=== PATIENT | male | born 1960 | race Caucasian/White ===

== ENCOUNTER 2018-10-29 09:18 | Emergency (ER) | payer MEDICARE, OTHER ==
[~2018-10-29] VITALS: Ht 170.2 cm; Wt 109.0 kg
[~2018-10-29 09:18] MED LIST: PRED20TA PO
[2018-10-29 09:23] VITALS: BP 126/83; PULSE 66; RESP 20; Ht 170.2 cm; Wt 109.0 kg
--- NOTE | 2018-10-29 09:41 | ERD ---
ER Documentation Chief Complaint Chief Complaint rashes all over the body since saturday HPI 58-year-old nondiabetic male is here complaining of rash to all over his body that he has had since Saturday. He states on Saturday he also had fever but admits he did not take his temperature but stated he had some chills. He is tried taking Benadryl which helped temporarily but the rash never went away. It is itchy. Denies any new foods soaps or irritants that he can think of. No lip or tongue swelling. ROS All systems reviewed and are negative except as per history of present illness. Medications Home Meds Active Scripts Prednisone* (Prednisone*) 20 Mg Tab, 60 MG PO DAILY for 5 Days, TAB Prov:RAYA MARTINES PA-C 10/29/18 Reported Medications [None] No Conflict Check 12/31/13 Allergies Allergies: Coded Allergies: No Known Drug Allergies (Unverified Allergy, Unknown, 12/31/13) PMhx/Soc History of Surgery: Yes (2002 VEIN GRAFTING FROM R LEG TO L LEG, ONE MORE L LEG SURG) Anesthesia Reaction: No Hx Neurological Disorder: No Hx Respiratory Disorders: No Hx Cardiac Disorders: No Hx Psychiatric Problems: No Hx Miscellaneous Medical Probl: No Hx Alcohol Use: Yes (RARELY) Hx Substance Use: No Hx Tobacco Use: No FmHx Family History: No diabetes Physical Exam Vitals Vital Signs Date Temp Pulse Resp B/P (MAP) Pulse Ox O2 O2 Flow FiO2 Time Delivery Rate 10/29/18 98.5 66 20 126/83 96 09:23 (97) Physical Exam INITIAL VITAL SIGNS: Reviewed by me THROAT: No tonilar erythema or edema. No exudates. Uvula midline. No kissing tonsils. RESPIRATORY: Clear to auscultation bilaterally. Symmetric chest wall rise. No wheezing or rales. No accessory muscle use. CV: Regular rate and rhythm. No murmurs, rubs, or gallops. SKIN: Macular papular hive-like rash all over patient's upper and lower extremities as well as anterior chest wall, but no pustules or vesicles Procedures/MDM Patient presents with allergic type rash. No lip or tongue swelling. No signs of anaphylaxis. She can continue to take Benadryl at home and he was given a prescription for a short course of prednisone. Patient counseled regarding my diagnostic impression and care plan. Prior to discharge all questions answered. Pt agrees with treatment plan and understands strict return precautions. Pt is instructed to follow up with primary care provider within 24-48 hours. Precautionary instructions provided including instructions to return to the ER if not improving or for any worsening or changing symptoms or concerns. Departure Diagnosis: Primary Impression: Rash Condition: Stable Patient Instructions: Self-Care for Skin Rashes Additional Instructions: Call your primary care doctor TOMORROW for an appointment during the next 1-2 days.See the doctor sooner or return here if your condition worsens before your appointment time. RAYA MARTINES PA-C Oct 29, 2018 09:41
== END 2018-10-29 10:10 | disposition home or self-care (01) ==
LOC: FTE 09:18
DX: R21 Rash and other nonspecific skin eruption (principal)
CPT/HCPCS: 99283